=== PATIENT | male | born 1990 | race Caucasian/White ===

== ENCOUNTER → 2022-11-24 | Outpatient (REF) | payer OTHER | LOC: M LABSMT 13:06 | PROVIDERS: ATTEND Urology | DX: Z30.2 Encounter for sterilization (principal) ==

== ENCOUNTER → 2022-11-24 | Outpatient (REF) | payer OTHER | LOC: M LABSMT 16:03 | PROVIDERS: ATTEND Urology | DX: Z53.9 Procedure and treatment not carried out, unspecified reason (principal) ==

== ENCOUNTER → 2025-02-13 | Outpatient (CLI) | payer OTHER | LOC: M CARPUL 08:52 | PROVIDERS: ATTEND Physician Assistant | DX: R06.02 Shortness of breath (principal) ==

== ENCOUNTER → 2025-05-16 | Outpatient (CLI) | payer OTHER ==
[~2025-05-16] MED LIST: METHACHOLINE KIT (6 VIAL.NEB PREMIX) INH ONE
== END ==
LOC: M CARPUL 07:47
PROVIDERS: ATTEND Physician Assistant
DX: R06.2 Wheezing (principal)
CPT/HCPCS: 94070; 95070; J7674